=== PATIENT | female | born 1985 | race Caucasian/White ===

== ENCOUNTER 2017-11-13 06:20 | Day surgery (SDC) | payer MEDICAID, OTHER ==
[~2017-11-13] VITALS: Ht 154.9 cm; Wt 70.5 kg
[~2017-11-13 06:20] MED LIST: DOCU-131 PO; HYDR-3240 PO; IBUP-1222 PO
[2017-11-13 07:05] LABS: BASOPHILS # (AUTO) 0.06 x10^3/uL (0-0.1); BASOPHILS % (AUTO) 0 % (0-1); EOSINOPHILS # (AUTO) 0.13 x10^3/uL (0-0.4); EOSINOPHILS % (AUTO) 1 % (1-7); LYMPHOCYTES # (AUTO) 1.82 x10^3/uL (1-3.4); LYMPHOCYTES % (AUTO) 12 % (22-44); MD NO; MEAN CORPUSCULAR HEMOGLOBIN 30.4 pg (27.0-34.8); MEAN CORPUSCULAR HGB CONC 34.4 g/dL (32.4-35.8); MEAN CORPUSCULAR VOLUME 88.3 fL (80-100); MEAN PLATELET VOLUME 9.1 fL (7.4-10.4); MONOCYTES # (AUTO) 0.98 x10^3/uL (0.2-0.8); MONOCYTES % (AUTO) 7 % (2-9); NEUTROPHILS # (AUTO) 11.78 x10^3/uL (1.8-6.8); NEUTROPHILS % (AUTO) 80 % (42-75); PLATELET COUNT 318 x10^3/uL (130-400); RED CELL DISTRIBUTION WIDTH 12.8 % (9.6-15.2)
[2017-11-13 07:06] LABS: ALANINE AMINOTRANSFERASE 62 U/L (12-78); ALBUMIN 3.4 g/dL (3.4-5.0); ANION GAP 7 mmol/L (5-15); CALCIUM 8.7 mg/dL (8.5-10.1); CHLORIDE 106 mmol/L (98-107); CREATININE 0.92 mg/dL (0.55-1.02)
[2017-11-13 07:08] LABS: ALKALINE PHOSPHATASE 163 U/L (45-117); BILIRUBIN,TOTAL 0.8 mg/dL (0.2-1.0); TOTAL PROTEIN 7.8 g/dL (6.4-8.2)
[2017-11-13 08:26] LABS: MICROSCOPIC INDICATED
[2017-11-13 08:48] LABS: CULTURE INDICATED? NO
[2017-11-13] MEDS ORDERED: MORPHINE SULFATE 4 MG/ML, 1ML ONE (08:52)
[2017-11-13] MEDS ORDERED: MORPHINE SULFATE 4 MG/ML, 1ML IVPush ONE (09:00)
[2017-11-13] MEDS ORDERED: OMNIPAQUE 350 MG/ML, 100ML BOTTLE ONE (09:16)
[2017-11-13] MEDS ORDERED: CEFOTETAN PMX 1GM/50ML 50 ML IV ONE (09:30)
[2017-11-13] MEDS ORDERED: CEFOTETAN PMX 1GM/50ML 50 ML ONE (10:22)
[2017-11-13] MEDS ORDERED: BUPIVACAINE/PF-EPI 0.25% 1:200K ONE (10:28)
[2017-11-13 11:03] VITALS: BP 103/71
[2017-11-13 11:13] VITALS: BP 103/71
[2017-11-13] MEDS ORDERED: KETOROLAC 30 MG/1 ML ONE (12:30)
[2017-11-13] MEDS ORDERED: NEOSTIGMINE 1 MG/ML, 10ML ONE (12:30)
[2017-11-13] MEDS ORDERED: ROCURONIUM 10 MG/ML,10ML ONE (12:30)
[2017-11-13] MEDS ORDERED: DEXAMETHASONE 4 MG/ML, 1ML ONE (12:30)
[2017-11-13] MEDS ORDERED: PROPOFOL 10 MG/ML, 20ML ONE (12:30)
[2017-11-13] MEDS ORDERED: ONDANSETRON 2MG/ML, 2ML ONE (12:30)
[2017-11-13] MEDS ORDERED: GLYCOPYRROLATE 0.2MG/1ML, 5ML ONE (12:30)
[2017-11-13] MEDS ORDERED: ACETAMINOPHEN 325 MG TABLET PO PRN (13:00)
[2017-11-13] MEDS ORDERED: HALOPERIDOL 5 MG/ML IV PRN (13:00)
[2017-11-13] MEDS ORDERED: PROMETHAZINE 25 MG/ML, 1ML IV PRN (13:00)
[2017-11-13] MEDS ORDERED: OXYcodone 5 MG/5 ML ORAL.SOL UDC PO PRN (13:00)
[2017-11-13] MEDS ORDERED: MEPERIDINE/PF 25MG/0.5ML IVPush PRN (13:00)
[2017-11-13] MEDS ORDERED: FENTANYL PF 100 MCG/2ML IV PRN (13:00)
[2017-11-13] MEDS ORDERED: HYDROmorphone 1 MG/ML, 1ML IV PRN (13:00)
[2017-11-13] MEDS ORDERED: OXYcodone 5 MG/5 ML ORAL.SOL UDC ONE (13:48)
[2017-11-13] MEDS ORDERED: FENTANYL PF 100 MCG/2ML ONE (13:48)
== END 2017-11-13 16:20 | disposition home or self-care (01) ==
LOC: ED 08:56 → EDIP 09:30 → UNDOADMOB 09:30 → OR 12:30
PROVIDERS: ATTEND Surgery
DX: K35.2 Acute appendicitis with generalized peritonitis (principal)
CPT/HCPCS: 36415; 44970; 74021; 74177; 80053; 81001; 81025; 83690; 85025; 88304; J1100; J1885; J2405; J2704; J2710; J3010; J3490; Q9967; S0074